=== PATIENT | female | born 1970 | race Caucasian/White ===

== ENCOUNTER 2017-05-07 15:57 | Emergency (ER) | payer SELFPAY ==
[~2017-05-07] VITALS: Ht 165.1 cm; Wt 103.4 kg
[2017-05-07 16:04] VITALS: Ht 165.1 cm; Wt 103.4 kg
[2017-05-07 17:14] LABS: BASOPHIL % 0.3 % (0-2); PLATELET COUNT 357 x10^3mcL (130-400)
[2017-05-07 17:22] LABS: UA SPECIFIC GRAVITY >=1.030 (1.005-1.035); microscopic required? YES; urine erythrocyte 2+ (NEGATIVE)
[2017-05-07 17:23] LABS: CALCIUM 9.9 mg/dL (8.5-10.1); CARBON DIOXIDE 23.9 mmol/L (21-32); CHLORIDE SERUM 104 mmol/L (98-107); CREATININE SERUM 0.7 mg/dL (0.6-1.0); GFR1 > 60 mL/min; GLUCOSE SERUM 112 mg/dL (74-106); POTASSIUM SERUM 3.4 mmol/L (3.5-5.1); SODIUM SERUM 141 mmol/L (136-145)
[2017-05-07 17:28] LABS: ALBUMIN 4.2 g/dL (3.4-5.0); ALKALINE PHOSPHATASE 85 U/L (46-116); ALT/SGPT 27 U/L (14-59); AST/SGOT 14 U/L (15-37); BILIRUBIN TOTAL 0.3 mg/dL (0.20-1.00); TOTAL PROTEIN, SERUM 7.7 g/dL (6.4-8.2)
[2017-05-07 19:13] VITALS: BP 139/87
== END 2017-05-07 19:13 | disposition home or self-care (01) ==
LOC: ED 15:57
PROVIDERS: Emergency Medicine
DX: R10.30 Lower abdominal pain, unspecified (principal); E03.9 Hypothyroidism, unspecified; I49.9 Cardiac arrhythmia, unspecified; K57.90 Diverticulosis of intestine, part unspecified, without perforation or abscess without bleeding; E78.00 Pure hypercholesterolemia, unspecified; Z88.5 Allergy status to narcotic agent
CPT/HCPCS: J1885; J2405

== ENCOUNTER 2017-05-08 19:44 | Emergency (ER) | payer MEDICAID ==
[2017-05-08 22:21] VITALS: BP 148/90
== END 2017-05-08 22:21 | disposition home or self-care (01) ==
LOC: ED 19:44
DX: R10.9 Unspecified abdominal pain (principal); M54.5 Low back pain; Z88.5 Allergy status to narcotic agent; E03.9 Hypothyroidism, unspecified; E78.00 Pure hypercholesterolemia, unspecified
CPT/HCPCS: 87491; 87591

== ENCOUNTER 2017-05-17 16:32 | Emergency (ER) | payer MEDICAID ==
[2017-05-17 18:06] LABS: CARBON DIOXIDE 24.2 mmol/L (21-32); CHLORIDE SERUM 103 mmol/L (98-107); CREATININE SERUM 0.7 mg/dL (0.6-1.0); GFR1 > 60 mL/min; GLUCOSE SERUM 110 mg/dL (74-106); POTASSIUM SERUM 3.7 mmol/L (3.5-5.1); SODIUM SERUM 139 mmol/L (136-145)
[2017-05-17 18:09] LABS: ALBUMIN 4.2 g/dL (3.4-5.0); ALKALINE PHOSPHATASE 92 U/L (46-116); ALT/SGPT 24 U/L (14-59); AMYLASE 41 U/L (25-115); AST/SGOT 12 U/L (15-37); BILIRUBIN TOTAL 0.2 mg/dL (0.20-1.00); LIPASE 127 IU/L (73-393); TOTAL PROTEIN, SERUM 8.1 g/dL (6.4-8.2)
[2017-05-17 18:11] LABS: BASOPHIL % 0.1 % (0-2); PLATELET COUNT 369 x10^3mcL (130-400); RED CELL DISTRIBUTION WIDTH 14.2 % (11.5-14.5)
[2017-05-17 19:42] VITALS: BP 132/82
== END 2017-05-17 19:42 | disposition home or self-care (01) ==
LOC: ED 16:32
PROVIDERS: Specialist
DX: K80.50 Calculus of bile duct without cholangitis or cholecystitis without obstruction (principal); E78.00 Pure hypercholesterolemia, unspecified; E03.9 Hypothyroidism, unspecified; Z88.5 Allergy status to narcotic agent
CPT/HCPCS: J1200; J1885; J2405; J3010; J7030

== ENCOUNTER 2017-06-17 21:26 | Emergency (ER) | payer SELFPAY ==
[~2017-06-17] VITALS: Ht 165.1 cm; Wt 99.8 kg
[2017-06-17 21:41] VITALS: Ht 165.1 cm; Wt 99.8 kg
[2017-06-17 22:24] LABS: BASOPHIL % 1.4 % (0-2); PLATELET COUNT 325 x10^3mcL (130-400); RED CELL DISTRIBUTION WIDTH 14.3 % (11.5-14.5)
[2017-06-17 22:44] LABS: microscopic required? NO
[2017-06-17 22:55] LABS: CALCIUM 9.7 mg/dL (8.5-10.1); CARBON DIOXIDE 22.5 mmol/L (21-32); CHLORIDE SERUM 105 mmol/L (98-107); CREATININE SERUM 0.7 mg/dL (0.6-1.0); GFR1 > 60 mL/min; GLUCOSE SERUM 126 mg/dL (74-106); POTASSIUM SERUM 3.9 mmol/L (3.5-5.1); SODIUM SERUM 140 mmol/L (136-145)
[2017-06-17 23:06] LABS: UA SPECIFIC GRAVITY >=1.030 (1.005-1.035); urine erythrocyte NEGATIVE (NEGATIVE)
[2017-06-17 23:09] LABS: ALBUMIN 3.7 g/dL (3.4-5.0); ALKALINE PHOSPHATASE 82 U/L (46-116); ALT/SGPT 29 U/L (14-59); AST/SGOT 17 U/L (15-37); BILIRUBIN TOTAL 0.34 mg/dL (0.20-1.00); FREE T4 1.19 ng/dL (0.76-1.46); LIPASE 101 IU/L (73-393); TOTAL PROTEIN, SERUM 7.6 g/dL (6.4-8.2)
[2017-06-17 23:15] LABS: AMPHETAMINE QUAL UR NONE DETECTED (NEG <=1000)
[2017-06-18] MEDS ORDERED: FLECAINIDE ACE100 MG PO (01:12)
[2017-06-18] MEDS ORDERED: PRAVASTATIN SOD20 M1 PO (01:12)
[2017-06-18] MEDS ORDERED: SYNTHROID0.125 MG PO (01:12)
[2017-06-18 08:03] VITALS: BP 135/80
== END 2017-06-18 08:03 | disposition home or self-care (01) ==
LOC: ED 21:26
PROVIDERS: Emergency Medicine
DX: K80.20 Calculus of gallbladder without cholecystitis without obstruction (principal); R11.10 Vomiting, unspecified; E03.9 Hypothyroidism, unspecified; E78.00 Pure hypercholesterolemia, unspecified; Z88.8 Allergy status to other drugs, medicaments and biological substances
CPT/HCPCS: 83880; 84439; 87804; G0480; J1885; J2405; J2543; J3370; J7030; J7050; Q0092; Q0162

== ENCOUNTER 2017-08-19 17:29 | Emergency (ER) | payer SELFPAY ==
[~2017-08-19] VITALS: Ht 167.6 cm; Wt 101.6 kg
[~2017-08-19 17:29] MED LIST: FLECAINIDE ACE100 MG PO; PRAVASTATIN SOD20 M1 PO; SYNTHROID0.125 MG PO
[2017-08-19 17:43] VITALS: Ht 167.6 cm; Wt 101.6 kg
[2017-08-19 20:08] VITALS: BP 129/74
== END 2017-08-19 20:08 | disposition home or self-care (01) ==
LOC: ED 17:29
DX: R10.2 Pelvic and perineal pain (principal); E03.9 Hypothyroidism, unspecified; I10 Essential (primary) hypertension; Z88.5 Allergy status to narcotic agent; Z90.721 Acquired absence of ovaries, unilateral
CPT/HCPCS: 87491; 87591; J0696; J1885

== ENCOUNTER 2017-08-21 15:51 | Emergency (ER) | payer SELFPAY ==
[~2017-08-21] VITALS: Ht 170.2 cm; Wt 124.3 kg
[2017-08-21 17:07] VITALS: Ht 170.2 cm; Wt 124.3 kg
[2017-08-21 18:56] LABS: microscopic required? NO
[2017-08-21 19:07] LABS: UA SPECIFIC GRAVITY 1.025 (1.005-1.035); urine erythrocyte NEGATIVE (NEGATIVE)
[2017-08-21 20:08] LABS: BASOPHIL % 0.1 % (0-2); PLATELET COUNT 348 x10^3mcL (130-400); RED CELL DISTRIBUTION WIDTH 14.4 % (11.5-14.5)
[2017-08-21 20:13] LABS: CALCIUM 10.2 mg/dL (8.5-10.1); CARBON DIOXIDE 26.2 mmol/L (21-32); CHLORIDE SERUM 109 mmol/L (98-107); CREATININE SERUM 0.7 mg/dL (0.6-1.0); GFR1 > 60 mL/min; GLUCOSE SERUM 94 mg/dL (74-106); POTASSIUM SERUM 4.2 mmol/L (3.5-5.1); SODIUM SERUM 144 mmol/L (136-145)
[2017-08-21 20:18] LABS: ALBUMIN 3.7 g/dL (3.4-5.0); ALKALINE PHOSPHATASE 90 U/L (46-116); ALT/SGPT 23 U/L (14-59); AST/SGOT 14 U/L (15-37); BILIRUBIN TOTAL 0.27 mg/dL (0.20-1.00); TOTAL PROTEIN, SERUM 7.5 g/dL (6.4-8.2)
[2017-08-21 22:47] VITALS: BP 125/78
== END 2017-08-21 22:47 | disposition home or self-care (01) ==
LOC: ED 15:51
PROVIDERS: Emergency Medicine
DX: R10.30 Lower abdominal pain, unspecified (principal); I10 Essential (primary) hypertension; E78.00 Pure hypercholesterolemia, unspecified; I49.9 Cardiac arrhythmia, unspecified; Z90.722 Acquired absence of ovaries, bilateral; Z88.5 Allergy status to narcotic agent
CPT/HCPCS: J1885; J7030; Q9967

== ENCOUNTER 2017-09-01 07:45 | Emergency (ER) | payer SELFPAY ==
[~2017-09-01] VITALS: Ht 167.6 cm; Wt 100.2 kg
[2017-09-01 07:48] VITALS: Ht 167.6 cm; Wt 100.2 kg
[2017-09-01 08:17] VITALS: BP 139/89
== END 2017-09-01 08:17 | disposition home or self-care (01) ==
LOC: ED 07:45
DX: F41.9 Anxiety disorder, unspecified (principal); E78.00 Pure hypercholesterolemia, unspecified; I10 Essential (primary) hypertension; I49.9 Cardiac arrhythmia, unspecified; Z90.722 Acquired absence of ovaries, bilateral; Z88.5 Allergy status to narcotic agent

== ENCOUNTER 2017-09-07 14:35 | Emergency (ER) | payer SELFPAY ==
[~2017-09-07] VITALS: Ht 170.2 cm; Wt 101.2 kg
[2017-09-07 14:39] VITALS: Ht 170.2 cm; Wt 101.2 kg
[2017-09-07 15:12] LABS: microscopic required? NO
[2017-09-07 15:37] LABS: BASOPHIL % 0.2 % (0-2); PLATELET COUNT 302 x10^3mcL (130-400); RED CELL DISTRIBUTION WIDTH 14.4 % (11.5-14.5)
[2017-09-07 15:45] LABS: CALCIUM 10.4 mg/dL (8.5-10.1); CHLORIDE SERUM 106 mmol/L (98-107); CREATININE SERUM 0.7 mg/dL (0.6-1.0); GFR1 > 60 mL/min; GLUCOSE SERUM 119 mg/dL (74-106); POTASSIUM SERUM 3.7 mmol/L (3.5-5.1); SODIUM SERUM 142 mmol/L (136-145)
[2017-09-07 15:46] LABS: AMPHETAMINE QUAL UR NONE DETECTED (NEG <=1000)
[2017-09-07 15:57] LABS: UA SPECIFIC GRAVITY 1.025 (1.005-1.035); urine erythrocyte NEGATIVE (NEGATIVE)
[2017-09-07 15:59] LABS: ALKALINE PHOSPHATASE 92 U/L (46-116); ALT/SGPT 25 U/L (14-59); AMYLASE 39 U/L (25-115); AST/SGOT 11 U/L (15-37); BILIRUBIN TOTAL 0.2 mg/dL (0.20-1.00); HDL CHOLESTEROL 40 mg/dL (40-60); LIPASE 142 IU/L (73-393); T4(THYROXINE) 10.8 ug/dL (4.7-13.3); TOTAL PROTEIN, SERUM 7.5 g/dL (6.4-8.2)
[2017-09-07 16:00] LABS: CHOLESTEROL 222 mg/dL (<200)
[2017-09-07 17:45] VITALS: BP 139/80
== END 2017-09-07 17:45 | disposition home or self-care (01) ==
LOC: ED 14:35
PROVIDERS: Emergency Medicine
DX: F41.9 Anxiety disorder, unspecified (principal); E78.00 Pure hypercholesterolemia, unspecified; E03.9 Hypothyroidism, unspecified; E66.01 Morbid (severe) obesity due to excess calories; I10 Essential (primary) hypertension; Z88.5 Allergy status to narcotic agent; Z90.710 Acquired absence of both cervix and uterus; I49.9 Cardiac arrhythmia, unspecified
CPT/HCPCS: 83880

== ENCOUNTER 2017-11-28 07:42 | Emergency (ER) | payer SELFPAY ==
[~2017-11-28] VITALS: Ht 172.7 cm; Wt 103.9 kg
[2017-11-28 07:48] VITALS: Ht 172.7 cm; Wt 103.9 kg
[2017-11-28 08:42] VITALS: BP 140/89
== END 2017-11-28 09:24 | disposition home or self-care (01) ==
LOC: ED 07:42
DX: M25.50 Pain in unspecified joint (principal); Z88.5 Allergy status to narcotic agent; I10 Essential (primary) hypertension; I49.9 Cardiac arrhythmia, unspecified; E03.9 Hypothyroidism, unspecified; E78.00 Pure hypercholesterolemia, unspecified; Z90.722 Acquired absence of ovaries, bilateral
CPT/HCPCS: J1100